=== PATIENT | female | born 1965 | race Caucasian/White ===

== ENCOUNTER 2023-08-25 13:25 | Outpatient (RCR) | payer OTHER | END 2023-08-27 | disposition home or self-care (01) | LOC: WSOH | DX: S30.0XXD Contusion of lower back and pelvis, subsequent encounter (principal); M62.830 Muscle spasm of back; J45.909 Unspecified asthma, uncomplicated; K51.90 Ulcerative colitis, unspecified, without complications; F32.A Depression, unspecified; T78.40XD Allergy, unspecified, subsequent encounter; Y99.0 Civilian activity done for income or pay ==

== ENCOUNTER 2023-09-08 10:01 | Outpatient (RCR) | payer OTHER | END 2023-09-27 | disposition home or self-care (01) | LOC: WSOH | DX: S30.0XXD Contusion of lower back and pelvis, subsequent encounter (principal); M62.830 Muscle spasm of back; J45.909 Unspecified asthma, uncomplicated; F32.A Depression, unspecified; K51.90 Ulcerative colitis, unspecified, without complications; F41.9 Anxiety disorder, unspecified; Y99.0 Civilian activity done for income or pay ==